=== PATIENT | female | born 1995 | race Caucasian/White ===

== ENCOUNTER 2019-03-25 10:24 | Emergency (ER) | payer OTHER ==
[2019-03-25 10:45] LABS: BILIRUBIN,URINE NEGATIVE (NEGATIVE); GLUCOSE, URINE (UA) NEGATIVE (NEGATIVE); KETONES,URINE (UA) NEGATIVE (NEGATIVE); LEUKOCYTE ESTERASE, URINE NEGATIVE (NEGATIVE); NITRITE,URINE NEGATIVE (NEGATIVE); OCCULT BLOOD,URINE NEGATIVE (NEGATIVE); PROTEIN,URINE NEGATIVE (NEGATIVE); UROBILINOGEN,URINE 0.2 (NORMAL) E.U./dL (NORMAL)
[2019-03-25 10:52] LABS: CLARITY,URINE CLEAR (CLEAR)
[2019-03-25 10:57] LABS: HCG UR QUAL NEGATIVE
--- NOTE | 2019-03-25 12:13 | ED Physician Documentation ---
PD HPI FEMALE - Stated complaint Stated Complaint: FEMALE - Chief complaint Chief Complaint: General - History obtained from History obtained from: Patient - History of Present Illness Timing - onset: How many weeks ago (1) Timing - duration: Weeks (1 week of having some itching of labia and some white vag discharge. Had IUD placed 3 weeks ago and had some spotting for a week or so.) Timing - details: Gradual onset, Still present (she has tried OTC Vagisil and Monistat without improvement.) Associated symptoms: Vaginal discharge (with itching labia). No: Genital sore/lesion, Dysuria, Urinary frequency Contributing factors: IUD (3 weeks ago, non-hormonal). No: Sexually active (not for several months) Similar symptoms before: Has not had sx before Review of Systems Nose: denies: Rhinorrhea / runny nose, Congestion Throat: denies: Sore throat Respiratory: denies: Cough : denies: Dysuria Skin: reports: Rash (some itchy redness at labia for a week). denies: Lesions PD PAST MEDICAL HISTORY - Past Medical History Endocrine/Autoimmune: None MUSIC LEADER: None - Present Medications Home Medications: Ambulatory Orders Medication Instructions Recorded Confirmed Fluconazole [Diflucan] 150 mg PO ONCE #2 tablet 03/25/19 - Allergies Allergies/Adverse Reactions: Allergies Allergy/AdvReac Type Severity Reaction Status Date / Time acetaminophen [From Tylenol] Allergy Hives Verified 03/25/19 10:31 codeine Allergy Hives Verified 03/25/19 10:31 Penicillins Allergy Hives Verified 03/25/19 10:31 PD ED PE NORMAL - Vitals Vital signs reviewed: Yes - General General: Alert and oriented X 3, No acute distress, Well developed/nourished - Abdomen Abdomen: Normal bowel sounds, Soft, Non tender, Non distended - Female Female : Deferred - Back Back: No CVA TTP - Derm Derm: Normal color, Warm and dry Results - Vitals Vitals: Vital Signs - 24 hr 03/25/19 03/25/19 10:28 12:18 Temperature 36.6 C Heart Rate 79 71 Respiratory 14 18 Rate Blood Pressure 122/71 100/60 O2 Saturation 99 99 Oxygen O2 Source Room air - Labs Labs: Laboratory Tests 03/25/19 10:36 Urine Color YELLOW Urine Clarity CLEAR Urine pH 6.0 Ur Specific [place] 1.020 Urine Protein NEGATIVE Urine Glucose (UA) NEGATIVE Urine Ketones NEGATIVE Urine Occult Blood NEGATIVE Urine Nitrite NEGATIVE Urine Bilirubin NEGATIVE Urine Urobilinogen 0.2 (NORMAL) Ur Leukocyte Esterase NEGATIVE Ur Microscopic Review NOT INDICATED Urine Culture Comments NOT INDICATED Urine HCG, Qual NEGATIVE PD MEDICAL DECISION MAKING - ED course Complexity details: considered differential (sounds likely yeast with low suspicion for STD nor BV. Shared decision to treat as yeast and recheck if not improved, with understanding of doing pelvic/further testing if not improved, to consider BV/etc.), d/w patient Departure - Departure Disposition: 01 Home, Self Care Clinical Impression: Yeast vaginitis Condition: Stable Record reviewed to determine appropriate education?: Yes Instructions: ED Vaginal Infec Fungal Krystal Follow-Up: Diony Stringer MD [Primary Care Provider] - Prescriptions: Fluconazole [Diflucan] 150 mg PO ONCE #2 tablet Comments: This sounds like a yeast vaginitis and we can treated with an oral antifungal now and repeated in 3 days. Return check if not fully improved over the next several days to week. If not fully improved, might need to have a pelvic exam to look for bacterial causes instead. Discharge Date/Time: 03/25/19 13:04
[2019-03-25 12:19] VITALS: BP 100/60
[2019-03-25] MEDS ORDERED: FLUCONAZOLE 100 MG TABLET PO STA (12:49)
== END 2019-03-25 13:04 | disposition home or self-care (01) ==
LOC: ED 10:24
DX: B37.3 Candidiasis of vulva and vagina (principal); Z97.5 Presence of (intrauterine) contraceptive device
CPT/HCPCS: 81003; 81025; 99283; A9270; 81001; 87086

== ENCOUNTER 2019-03-27 07:23 | Emergency (ER) | payer OTHER ==
--- NOTE | 2019-03-27 07:49 | ED Physician Documentation ---
PD HPI FEMALE - Stated complaint Stated Complaint: FEMALE - Chief complaint Chief Complaint: General - History obtained from History obtained from: Patient - History of Present Illness Timing - onset: How many days ago (several) Timing - details: Gradual onset Associated symptoms: Vaginal pain, Vaginal discharge Contributing factors: IUD Recently seen: Emergency Dept (2 days ago.) - Treatment prior to arrival Treatment prior to arrival: Diflucan - Additional information Additional information: The patient is a 23-year-old female who complains of vaginal itching and discharge that started more than one week ago and has been getting progressively worse. She was seen in the emergency department 2 days ago and treated with Diflucan for presumed vaginal yeast infection. The patient denies fever, abdominal pain, or dysuria, although there is burning sensation of the labial skin when urine touches it. An IUD was placed 4 weeks ago. Review of Systems Constitutional: denies: Fever Nose: denies: Congestion Throat: denies: Sore throat Respiratory: denies: Dyspnea, Cough GI: denies: Abdominal Pain, Nausea, Vomiting : reports: Dysuria, Discharge, Control (IUD, placed 4 weeks ago.) Skin: reports: Rash (labia) Musculoskeletal: denies: Back pain Neurologic: denies: Headache PD PAST MEDICAL HISTORY - Past Medical History Cardiovascular: None Respiratory: None Neuro: None Endocrine/Autoimmune: None GI: None CUSTOMER SERVICES SUPERVISOR: None : None HEENT: None Psych: None Musculoskeletal: None Derm: None - Past Surgical History Past Surgical History: Yes HEENT: Tonsil/Adenoidectomy - Present Medications Home Medications: Ambulatory Orders Medication Instructions Recorded Confirmed Fluconazole [Diflucan] 150 mg PO ONCE #2 tablet 03/25/19 Clindamycin Phosphate 40 gm VG BID #2 cream.appl 03/27/19 - Allergies Allergies/Adverse Reactions: Allergies Allergy/AdvReac Type Severity Reaction Status Date / Time acetaminophen [From Tylenol] Allergy Hives Verified 03/27/19 07:30 codeine Allergy Hives Verified 03/27/19 07:30 Penicillins Allergy Hives Verified 03/27/19 07:30 - Social History Does the pt smoke?: No Smoking Status: Never smoker Does the pt drink ETOH?: No Does the pt have substance abuse?: No - Immunizations Immunizations are current?: Yes - POLST Patient has POLST: No PD ED PE NORMAL - Vitals Vital signs reviewed: Yes (normal) - General General: Alert and oriented X 3, Well developed/nourished - HEENT HEENT: Atraumatic - Neck Neck: No adenopathy - Cardiac Cardiac: RRR - Respiratory Respiratory: No respiratory distress, Clear bilaterally - Abdomen Abdomen: Soft, Non tender - Back Back: No CVA TTP - Derm Derm: No rash - Extremities Extremities: No edema, No calf tenderness / cord - Neuro Neuro: Alert and oriented X 3, No motor deficit, No sensory deficit PD ED PE EXPANDED - Female Female : Vaginal Discharge, Cultures sent, Community Health Advocate present, Other (There is erythema of the labia bilaterally, as well as the vaginal introitus. There is a significant amount of whitish debris within the vaginal vault. There is no cervical motion tenderness. The white debris was removed from the vaginal vault. MARLA prep and cervical cultures were obtained and sent to the laboratory.) Results - Vitals Vitals: Oxygen O2 Source Room air - Labs Labs: Microbiology 03/27/19 08:05 Wet Prep - Final Vaginal Laboratory Tests 03/27/19 08:05 Chlam trachomat DNA PCR NEGATIVE N.gonorrhoeae DNA (PCR) NEGATIVE T. vaginalis (PCR) NEGATIVE PD MEDICAL DECISION MAKING - ED course Complexity details: reviewed old records, reviewed results, re-evaluated patient, considered differential, d/w patient ED course: The patient's presentation is most consistent with a vaginal infection. There is significant white debris within the vaginal vault and erythema of the vulva. Wet mount is negative for yeast, trichomonas, and clue cells. GC and Chlamydia cultures are pending. Based on the patient's symptoms and physical examination she is being discharged with prescription for clindamycin vaginal cream. I discussed with her the diagnosis, vaginal antibiotic topical treatment and outpatient follow-up, as well as potentially worrisome signs or symptoms that should prompt reevaluation in the emergency department. Departure - Departure Disposition: 01 Home, Self Care Clinical Impression: Vulvovaginal infection Condition: Stable Health Concerns: vaginal pain, itching. Plan of Treatment: clindamycin vag. cream Care Goals: Resolution of symptoms. Assessment: see above Instructions: Vaginal Infec Follow-Up: Diony Stringer MD [Primary Care Provider] - Prescriptions: Clindamycin Phosphate 40 gm VG BID #2 cream.appl Comments: Use clindamycin cream twice daily as prescribed. Follow-up with your primary physician within 1 to 2 weeks. Call to schedule appointment. Return to the emergency department if you develop increasing rash, pain, vaginal discharge, or otherwise worsening symptoms. Discharge Date/Time: 03/27/19 09:25
[2019-03-27 09:27] VITALS: BP 128/74
[2019-03-27 20:06] LABS: TRICHOMONAS VAGINALIS DNA NEGATIVE (NEGATIVE)
== END 2019-03-27 09:25 | disposition home or self-care (01) ==
LOC: ED 07:23
DX: N76.0 Acute vaginitis (principal); Z97.5 Presence of (intrauterine) contraceptive device
CPT/HCPCS: 36415; 80053; 83690; 84484; 85025; 87210; 87491; 87591; 87661; 99283